=== PATIENT | female | born 1955 | race Caucasian/White ===

== ENCOUNTER 2017-09-07 16:12 | Observation (INO) | payer BC ==
[~2017-09-07] VITALS: Ht 157.5 cm; Wt 58.2 kg
[2017-09-07 16:46] LABS: HEMATOCRIT 38.5 % (36.0-46.0); HEMOGLOBIN 13.2 G/DL (11.9-15.5); MCH 32.1 PG (29.0-34.0); MCHC 34.3 G/DL (30.0-36.0); MCV 93.7 FL (83-99); PLATELET COUNT 227 K/uL (156-360); RBC DIS.WIDTH-CV 12.7 % (11.8-14.6); RED BLOOD COUNT 4.11 M/uL (3.80-5.20); WHITE BLOOD COUNT 7.3 K/uL (4.1-10.2)
[2017-09-07 16:55] LABS: CHLORIDE 109 mEq/L (99-109); POTASSIUM 4.2 mEq/L (3.7-5.4); SODIUM 142 mEq/L (136-147)
[2017-09-07 16:57] LABS: GLUCOSE 96 mg/dL (70-99)
[2017-09-07 17:01] LABS: CREATININE 0.9 mg/dL (0.6-1.3); GFR ESTIMATE (CALCULATED) > 59 mL/min/
[2017-09-07 17:02] LABS: UREA NITROGEN (BUN) 16 mg/dL (9-23)
[2017-09-07 17:09] LABS: TROP-I INTERPRETATION NEGATIVE; TROPONIN-I < 0.01 ng/mL (0.0-0.30)
[2017-09-07] MEDS ORDERED: LOVASTATIN20 MG PO (17:44)
[2017-09-07] MEDS ORDERED: MONTELUKAST SOD10 MG PO (17:44)
[2017-09-07] MEDS ORDERED: LEVOXYL88 MCG PO (17:45)
[2017-09-07] MEDS ORDERED: DEXTROAMP-AMPHE10 MG PO (17:46)
[2017-09-07] MEDS ORDERED: ALBUTEROL2.5 MG/3 M IH (17:46)
[2017-09-07] MEDS ORDERED: BUPROPION HCL100 MG PO (17:47)
[2017-09-07] MEDS ORDERED: LAMICTAL25 MG PO (17:48)
[2017-09-07] MEDS ORDERED: SAM-E200 MG PO (17:49)
[2017-09-07] MEDS ORDERED: YUVAFEM10 MCG VG (17:51)
[2017-09-07] MEDS ORDERED: EZETIMIBE10 MG PO (17:54)
[2017-09-07 18:35] LABS: D-DIMER ELISA < 150.00 ng/mLDDU (<230)
[2017-09-07 20:09] VITALS: BP 133/70
[2017-09-08 00:08] VITALS: BP 108/55
[2017-09-08 01:22] LABS: TROP-I INTERPRETATION NEGATIVE; TROPONIN-I < 0.01 ng/mL (0.0-0.30)
[2017-09-08 04:42] VITALS: BP 131/66
[2017-09-08 05:45] LABS: HEMATOCRIT 36.3 % (36.0-46.0); HEMOGLOBIN 11.9 G/DL (11.9-15.5); MCH 31.5 PG (29.0-34.0); MCHC 32.8 G/DL (30.0-36.0); PLATELET COUNT 207 K/uL (156-360); RBC DIS.WIDTH-SD 45.2 % (39-53); RED BLOOD COUNT 3.78 M/uL (3.80-5.20); WHITE BLOOD COUNT 6.8 K/uL (4.1-10.2)
[2017-09-08 06:01] LABS: CHLORIDE 110 MEQ/L (99-109); CREATININE 0.8 MG/DL (0.6-1.3); GFR ESTIMATE (CALCULATED) > 59 mL/min/; GLUCOSE 108 mg/dL (70-99); POTASSIUM 3.8 MEQ/L (3.7-5.4); SODIUM 143 MEQ/L (136-147); TROP-I INTERPRETATION NEGATIVE; TROPONIN-I < 0.01 ng/mL (0.0-0.30); UREA NITROGEN (BUN) 15 mg/dL (9-23)
[2017-09-08 07:38] VITALS: BP 133/59
[2017-09-08] MEDS ORDERED: ASPIR 8181 M1 PO (10:28)
[2017-09-08 11:52] VITALS: BP 114/63
== END 2017-09-08 13:14 | disposition home or self-care (01) ==
LOC: EME 16:12 → EDOF 17:35 → 4SOUTH 17:35 → EDOF 17:35 → ENRESERV 17:37 → 4SOUTH 19:56
PROVIDERS: Hospitalist; Nurse Practitioner Family
DX: R07.89 Other chest pain (principal); E78.5 Hyperlipidemia, unspecified; G47.30 Sleep apnea, unspecified; E03.9 Hypothyroidism, unspecified; Z72.0 Tobacco use
CPT/HCPCS: 71046; 80048; 84484; 85027; 85379; 93005; 93306; 99281; 99285; G0378; J7030